=== PATIENT | female | born 1990 | race Caucasian/White ===

== ENCOUNTER 2016-12-05 08:35 | Emergency (ER) | payer OTHER ==
[2016-12-05 08:41] VITALS: BP 136/60; PULSE 82; RESP 17; TEMP 97.4
[2016-12-05] MEDS ORDERED: ORPHENADRINE 30 MG/ML 2 ML VIAL IM STA (08:50)
[2016-12-05] MEDS ORDERED: KETOROLAC 60 MG/2 ML VIAL IM STA (08:50)
--- NOTE | 2016-12-05 08:53 | ED ---
Back Pain HPI - General Chief Complaint: Back Pain/Injury Stated Complaint: upper back/neck pain Time Seen by Provider: 12/05/16 08:45 Source: patient, RN notes reviewed Mode of arrival: ambulatory Limitations: no limitations - History of Present Illness Initial Comments: 26-year-old female presents emergency Department with chief complaint of upper back/neck and shoulder pain. Patient states that over the last 2 weeks she's been doing repetitive work in which she's been climbing up ladders and pulling files away. She states this is a new job for her. She states that she's been having some discomfort and she gets worse throughout the day. She states she woke up today with severe tightness in her left shoulder. She states it's worse when she moves better at rest. She states she took some ibuprofen the day with no relief of pain. Patient denies chest pain, palpitations, shortness breath, blurred vision, headache, dizziness. Patient has no upper extremity weakness or paresthesias. - Related Data Home Medications Medication Instructions Recorded Confirmed Dextroamphetamine/Amphetamine 20 mg PO BID 12/05/16 12/05/16 [Adderall] Previous Rx's Medication Instructions Recorded Cyclobenzaprine [Flexeril] 10 mg PO TID PRN #15 tab 12/05/16 Hydrocodone/Acetaminophen [[place] 1 tab PO Q6HR PRN #20 tab 12/05/16 5-325] Allergies Allergy/AdvReac Type Severity Reaction Status Date / Time Penicillins Allergy Swelling Verified 12/05/16 08:37 Review of Systems ROS Statement: Those systems with pertinent positive or pertinent negative responses have been documented in the HPI. ROS Other: All systems not noted in ROS Statement are negative. Past Medical History Past Medical History: No Reported History History of Any Multi-Drug Resistant Organisms: None Reported Past Surgical History: No Surgical Hx Reported Past Psychological History: No Psychological Hx Reported Smoking Status: Never smoker Past Alcohol Use History: None Reported Past Drug Use History: None Reported General Exam Limitations: no limitations General appearance: alert, in no apparent distress Head exam: Present: atraumatic, normocephalic, normal inspection Eye exam: Present: normal appearance, PERRL, EOMI. Absent: scleral icterus, conjunctival injection, periorbital swelling ENT exam: Present: normal oropharynx Neck exam: Present: normal inspection, tenderness (Mild tenderness over the left trapezius), full ROM. Absent: meningismus, lymphadenopathy Respiratory exam: Present: normal lung sounds bilaterally. Absent: respiratory distress, wheezes, rales, rhonchi, stridor, decreased breath sounds Cardiovascular Exam: Present: regular rate, normal rhythm, normal heart sounds. Absent: systolic murmur, diastolic murmur, rubs, gallop, clicks Extremities exam: Present: other (Equal strength and full range of motion of upper extremities, neurovascular intact) Back exam: Present: full ROM, tenderness (Mild tenderness of the left scapular region), muscle spasm. Absent: paraspinal tenderness, vertebral tenderness Neurological exam: Present: alert, oriented X3, CN II-XII intact, reflexes normal. Absent: motor sensory deficit Course Vital Signs 12/05/16 08:38 Temperature 97.4 F L Pulse Rate 82 Respiratory 17 Rate Blood Pressure 136/60 O2 Sat by Pulse 100 Oximetry Medical Decision Making - Medical Decision Making 26-year-old female presented emergency department for upper back, neck pain. Patient has obvious muscle spasms. Patient pain is related to repetitive work and lifting. Patient was given pain medication, muscle relaxers. Patient is advised that he apply heat, ice and stretch. Return parameters were discussed. Disposition Clinical Impression: Upper back pain, Trapezius muscle spasm Disposition: HOME SELF-CARE Condition: Stable Instructions: Muscle Spasm (ED) Additional Instructions: Please return to the Emergency Department if symptoms worsen or any other concerns. Prescriptions: Cyclobenzaprine [Flexeril] 10 mg PO TID PRN #15 tab PRN Reason: Muscle Spasm Hydrocodone/Acetaminophen [[place] 5-325] 1 tab PO Q6HR PRN #20 tab PRN Reason: Pain Time of Disposition: 08:53
== END 2016-12-05 09:09 | disposition home or self-care (01) ==
LOC: EC 08:35
DX: M62.830 Muscle spasm of back (principal); Z79.899 Other long term (current) drug therapy; Z88.0 Allergy status to penicillin
CPT/HCPCS: 99283; 96372 ×2; J2360; J1885

== ENCOUNTER 2020-11-06 05:47 | Inpatient (IN) | payer BC, OTHER ==
[2020-11-06] MEDS ORDERED: TERBUTALINE 1 MG/ML VIAL SQ PRN (06:08)
[2020-11-06] MEDS ORDERED: OXYTOCIN 10 UNIT/ML 1 ML VIAL IM PRN (06:08)
[2020-11-06] MEDS ORDERED: CARBOPROST TROMETHAMINE 250 MCG/ML 1 ML AMP IM PRN (06:08)
[2020-11-06] MEDS ORDERED: LIDOCAINE 0.5% (PF) 5 MG/ML (50 ML SDV) SQ PRN (06:08)
[2020-11-06] MEDS ORDERED: OXYTOCIN 30 UNITS/500 ML NS 30 UNIT in SALINE 1 500ML.BAG IV SCH ×2 (06:08→12:45)
[2020-11-06] MEDS ORDERED: METHYLERGONOVINE 0.2 MG/ML 1 ML AMP IM PRN (06:08)
--- NOTE | 2020-11-06 06:27 | P.HPOB ---
History of Present Illness H&P Date: 11/06/20 Chief Complaint: Requested induction of labor. This patient is a pleasant 30-year-old 2 para 0 female estimated date of confinement 11/08/2020 estimated gestational age 39-5/7 weeks who presents to labor and delivery for requested induction of labor. Patient's care has been uncomplicated. She is uncomfortable as requested induction of labor at this time. Review of Systems Genitourinary: Reports Menstruation: Reports amenorrhea Past Medical History Past Medical History: No Reported History History of Any Multi-Drug Resistant Organisms: None Reported Past Surgical History: No Surgical Hx Reported Past Anesthesia/Blood Transfusion Reactions: No Reported Reaction Past Psychological History: No Psychological Hx Reported Past Alcohol Use History: None Reported Past Drug Use History: None Reported Medications and Allergies Home Medications Medication Instructions Recorded Confirmed Type Pnv 11/Iron Fum/Folic Acid/Om3 1 each PO DAILY 11/06/20 11/06/20 History [Virt-Syed Dha Softgel] Allergies Allergy/AdvReac Type Severity Reaction Status Date / Time Penicillins Allergy Swelling Verified 11/06/20 06:07 Exam Intake and Output 11/05/20 11/05/20 11/06/20 14:59 22:59 06:59 Other: Weight 83.007 kg - OBG Physical Exam Abdomen: bowel sounds normal, no diffuse tenderness, no bruit present, no guarding noted, no hepatomegaly, no splenomegaly, no mass Vulva: both: normal Vagina: normal moisture, no discharge Cervix: no lesion (Cervix is 2 cm 80% effaced -2 station.), no discharge Uterus: enlarged (Fundal height 38 cm.) Results blood work shows she is O positive, rubella immune, RPR nonreactive, hepatitis B negative, Glucola was normal, group B strep was negative, ultrasounds has shown normal anatomy and growth. Assessment and Plan Assessment: This is a pleasant 30-year-old 2 para 0 female 39-5/7 weeks gestation admitted to labor and delivery for requested induction of labor. Plan is induction of labor and anticipate vaginal delivery. (1) 39 weeks gestation of Current Visit: Yes Status: Acute Code(s): Z3A.39 - 39 WEEKS GESTATION OF SNOMED Code(s): 85342555 (2) Elective induction of labor planned Current Visit: Yes Status: Acute Code(s): AKS9031 - SNOMED Code(s): 934619882
[2020-11-06 06:29] LABS: Basophils % (A) 0 %; Eosinophils # (A) 0.2 k/uL (0-0.7); Eosinophils % (A) 2 %; HCT 38.8 % (34.0-46.0); HGB 13.3 gm/dL (11.4-16.0); Lymphocytes # (A) 2.5 k/uL (1.0-4.8); Lymphocytes % (A) 22 %; MCH 32.6 pg (25.0-35.0); MCHC 34.2 g/dL (31.0-37.0); MCV 95.5 fL (80.0-100.0); Mean Platelet Volume 7.3; Monocytes # (A) 0.6 k/uL (0-1.0); Monocytes % (A) 5 %; Neutrophils # (A) 8.2 k/uL (1.3-7.7); Neutrophils % (A) 71 %; Platelet Count 231 k/uL (150-450); RBC 4.07 m/uL (3.80-5.40); RDW 12.9 % (11.5-15.5); WBC 11.7 k/uL (3.8-10.6)
[2020-11-06 07:33] VITALS: RESP 16
[2020-11-06] MEDS: LACTATED RINGERS 1,000 ML IV SCH ×2 (07:52→20:28)
[2020-11-06] MEDS ORDERED: LACTATED RINGERS 1,000 ML IV ONE (11:36)
[2020-11-06] MEDS ORDERED: CITRIC ACID-SODIUM CITRATE 15 ML CUP PO ONE (11:36)
[2020-11-06] MEDS ORDERED: fentaNYL (PF) 50 MCG/ML 2 ML AMP ONE (11:54)
[2020-11-06] MEDS ORDERED: KETOROLAC 15 MG/ML 1 ML VIAL ONE (11:54)
[2020-11-06] MEDS ORDERED: ONDANSETRON 4 MG/2 ML VIAL ONE (11:54)
[2020-11-06] MEDS ORDERED: MORPHINE SULFATE (PF) 0.3 MG/0.3 ML SYR ONE (11:54)
[2020-11-06] MEDS ORDERED: OXYTOCIN 10 UNIT/ML 1 ML VIAL ONE (11:54)
[2020-11-06] MEDS ORDERED: CLINDAMYCIN 900 MG in DEXTROSE 5% IN WATER 50 ML IVPB ONE ×2 (12:00)
[2020-11-06] MEDS ORDERED: GENTAMICIN 330 MG in SODIUM CHLORIDE 0.9% 100 ML IVPB ONE (12:00)
[2020-11-06] MEDS ORDERED: ZOLPIDEM 5 MG TAB PO PRN (12:42)
[2020-11-06] MEDS ORDERED: NALOXONE 0.4 MG/ML 1 ML VIAL IV PRN (12:42)
[2020-11-06] MEDS ORDERED: diphenhydrAMINE 25 MG CAP PO PRN (12:42)
[2020-11-06] MEDS ORDERED: diphenhydrAMINE 50 MG/ML 1 ML VIAL IVP PRN (12:42)
[2020-11-06] MEDS ORDERED: METOCLOPRAMIDE 5 MG/ML 2 ML VIAL IVP PRN (12:42)
[2020-11-06] MEDS ORDERED: ONDANSETRON 4 MG/2 ML VIAL IVP PRN (12:42)
[2020-11-06] MEDS ORDERED: SIMETHICONE 80 MG CHEWABLE PO PRN (12:42)
[2020-11-06] MEDS ORDERED: LANOLIN CREAM 5 GM TUBE TOPICAL PRN (12:42)
--- NOTE | 2020-11-06 12:54 | P.OP ---
Date of Procedure: 11/06/20 Preoperative Diagnosis: #1: 39-5/7 week intrauterine . #2: Nonreassuring heart tones remote from delivery. Postoperative Diagnosis: #1: Same. #2: Nuchal cord 3 Procedure(s) Performed: Primary low transverse section Anesthesia: spinal Surgeon: Jason Leger Change Management Analyst #1: Claude Rosenberg Estimated Blood Loss (ml): 600 Pathology: other (Placenta) Condition: stable Disposition: observation Indications for Procedure: please see dictated H&P for intimate details of this patient's admission. In brief summary this is a pleasant 30-year-old 2 para 0 female 39-5/7 weeks' gestation who is admitted to labor and delivery for elective induction of labor. Patient is admitted she is 2 cm dilated has artificial rupture membranes for clear appearing fluid. Patient has Pitocin induction of labor. Unfortunately patient only progresses to 4 cm dilated begins having regular variable decelerations to the 60s. At this time I discussed with the patient my concerns and the remoteness from delivery and recommended proceed with section. Patient understands this surgery and risks including risks of infection, bleeding, possible injury to bowel, bladder, vessels, and/or other organs. All the patient's questions are answered and a written consent is obtained. Operative Findings: This is a vigorous viable female infant Apgars 8 and 9 delivery time is 1208 hrs. had a nuchal cord 3 and light meconium-stained fluid Description of Procedure: This patient is taken to the operating room. She is already had a Art catheter placed to straight drain. She subsequent sat up and spinal anesthetic is administered without incident. With an adequate level of anesthesia she is an abdominal prep and drape. Scalpels and taken Pfannenstiel skin incision is then made. A second scalpel is taken down the fascia the fascia scored with a knife. Fascial incision extended bilaterally using the Adams scissors. Fascia is then dissected off the rectus muscles sharply. Rectus muscles are the peritoneum identified and entered sharply. Peritoneal incision extended superior and inferior without difficulty. Bladder blade is then placed. Bladder peritoneum was taken off the lower uterine segment sharply. Scalpels and taken low transverse uterine incision is then made. Using a hemostat I into the uterine cavity bluntly and there is loss of thin meconium appearing fluid. The uterine incision extended bluntly. The infant's head is then guided through the incision with fundal pressure delivered. Mouth and nares are bulb suctioned. There is a nuchal cord 3 which is reduced. With gentle fundal pressure we then deliver the rest this infant's body. This is a vigorous viable female infant Apgars 8 and 9 delivery time was 1208 hrs. has spontaneous respiration good cry. Umbilical cord is doubly clamped and cut does appear to be trivascular. Placenta is then manually extracted intact. Uterus is then externalized. Uterine incision is then done demarcated with Correa clamps and closed using 0 Vicryl running locked fashion 2 layers. Excellent hemostasis is noted. Bladder peritoneum was then reapproximated using 3-0 Vicryl running fashion. Excess fluid is removed from the abdomen and pelvis. Uterus, tubes, ovaries appear normal for term gestation. Uterus placed back into the abdomen. The parietal peritoneum was then closed using 0 Vicryl running fashion. Rectus muscles reapproximated Vicryl interrupted fashion. Fascial incision is closed using 0 PDS. Fascial incision is intact and hemostatic. Subcutaneous tissues and closed using a 3-0 Vicryl. Skin is and closed using digna. Sterile dressing is applied. All counts correct 3. There are no complications. and mother stable in the birthing room.
[2020-11-06] MEDS: SENNOSIDES-DOCUSATE SODIUM 1 EACH TAB PO SCH (20:28)
[2020-11-06] MEDS: KETOROLAC 15 MG/ML 1 ML VIAL IVP PRN (21:53)
[2020-11-07] MEDS: LACTATED RINGERS 1,000 ML IV SCH ×3 (03:40→19:44)
[2020-11-07] MEDS: KETOROLAC 15 MG/ML 1 ML VIAL IVP PRN (04:47)
--- NOTE | 2020-11-07 06:29 | P.PNOBGPC ---
Subjective - Subjective Patient reports: Reports appetite normal, Reports voiding normally, Reports pain well controlled, Reports ambulating normally : doing well Objective - Vital Signs Latest vital signs: Vital Signs Temp Pulse Resp BP Pulse Ox 11/07/20 04:00 98.4 F 78 16 111/62 95 11/07/20 00:00 98.5 F 84 16 102/65 96 11/06/20 20:00 98.5 F 80 16 101/63 98 11/06/20 16:00 98.2 F 75 16 108/58 11/06/20 14:37 82 16 108/56 11/06/20 14:07 98.4 F 76 16 100/61 11/06/20 13:37 86 16 141/75 96 11/06/20 13:22 80 16 115/57 96 11/06/20 13:07 81 16 114/62 97 11/06/20 12:52 88 16 117/79 97 11/06/20 12:37 98.1 F 86 16 131/82 98 11/06/20 07:33 98.4 F 92 16 120/66 99 11/06/20 07:25 98.4 F 92 16 120/66 99 Intake and Output 11/06/20 11/06/20 11/07/20 14:59 22:59 06:59 Intake Total 50 1000 Output Total 700 600 Balance 50 300 -600 Intake: Oral 50 1000 Output: Urine 700 600 Uretheral (Art) 300 Other: # Voids 2 Weight 83.007 kg - Exam Lungs: bilateral: normal Chest: Normal S1, Normal S2 Extremities: Present: normal Abdomen: Present: normal appearance, soft. Absent: distention, tenderness Incision: Present: normal, dry, intact Uterus: Present: normal, firm - Labs Labs: Abnormal Lab Results - Last 24 Hours (Table) 11/06/20 Range/Units 06:03 WBC 11.7 H (3.8-10.6) k/uL Neutrophils # 8.2 H (1.3-7.7) k/uL Assessment and Plan Assessment: Postoperative day #1. Patient is resting without new complaints. Vital signs are stable and she is afebrile. Uterus is firm nontender and her incision is intact and dry. Patient is ambulating and urinating without difficulty. Plan today is to check a CBC, allow the patient to shower, encourage ambulation, and advance diet. (1) 39 weeks gestation of Current Visit: Yes Status: Acute Code(s): Z3A.39 - 39 WEEKS GESTATION OF SNOMED Code(s): 34477140 (2) Elective induction of labor planned Current Visit: Yes Status: Acute Code(s): VCD1888 - SNOMED Code(s): 025203720
--- NOTE | 2020-11-07 08:33 | P.PN ---
Progress Note - Text Progress Note Date: 11/07/20 (281) Anesthesia Postop day 1 Subjective: Status Post section with Duramorph. Patient seen and examined. Doing well without complaint. VAS 0. No nausea or vomiting. Mild pruritus tolerable.. . Gross lower extremity strength intact. Positive ambulation . Without apparent anesthetic complications. Objective: Vital signs reviewed Heart: Regular Rate Lungs: Good chest excursion Abdomen: Appears nondistended Assessment: Status post with Duramorph postop day 1 Plan: Continue current care with your medical management.
[2020-11-07 08:50] LABS: Basophils # (A) 0.1 k/uL (0-0.2); Basophils % (A) 0 %; Eosinophils # (A) 0.3 k/uL (0-0.7); Eosinophils % (A) 2 %; HCT 36.1 % (34.0-46.0); HGB 12.4 gm/dL (11.4-16.0); Lymphocytes # (A) 1.6 k/uL (1.0-4.8); Lymphocytes % (A) 13 %; MCH 33.1 pg (25.0-35.0); MCHC 34.4 g/dL (31.0-37.0); MCV 96.2 fL (80.0-100.0); Mean Platelet Volume 7.3; Monocytes # (A) 0.5 k/uL (0-1.0); Monocytes % (A) 4 %; Neutrophils # (A) 10.2 k/uL (1.3-7.7); Neutrophils % (A) 80 %; Platelet Count 191 k/uL (150-450); RBC 3.75 m/uL (3.80-5.40); WBC 12.7 k/uL (3.8-10.6)
[2020-11-07] MEDS: SENNOSIDES-DOCUSATE SODIUM 1 EACH TAB PO SCH ×2 (09:00→20:47)
[2020-11-07] MEDS: IBUPROFEN 600 MG TAB PO PRN (20:47)
[2020-11-08] MEDS: LACTATED RINGERS 1,000 ML IV SCH ×2 (01:04→04:38)
--- NOTE | 2020-11-08 06:34 | P.PNOBGPC ---
Subjective - Subjective Patient reports: Reports appetite normal, Reports voiding normally, Reports pain well controlled, Reports ambulating normally : doing well Objective - Vital Signs Latest vital signs: Vital Signs Temp Pulse Resp BP Pulse Ox 11/08/20 04:00 97.5 F L 84 16 104/55 96 11/07/20 20:00 98.2 F 86 16 120/58 96 11/07/20 11:58 98.1 F 84 16 101/61 11/07/20 08:00 98.2 F 76 16 98/55 Intake and Output 11/07/20 11/07/20 11/08/20 14:59 22:59 06:59 Other: # Voids 1 - Exam Lungs: bilateral: normal Chest: Normal S1, Normal S2 Extremities: Present: normal Abdomen: Present: normal appearance, soft. Absent: distention, tenderness Incision: Present: normal, dry, intact Uterus: Present: normal, firm - Labs Labs: Abnormal Lab Results - Last 24 Hours (Table) 11/07/20 Range/Units 07:50 WBC 12.7 H (3.8-10.6) k/uL RBC 3.75 L (3.80-5.40) m/uL Neutrophils # 10.2 H (1.3-7.7) k/uL Assessment and Plan Assessment: Postoperative day #2. Patient is resting without complaints. She is having some difficulty with breast-feeding and emotional about this. Vital signs are stable and she is afebrile. Uterus is firm nontender and her incision is intact and dry. Patient is considering going home today. Vital signs are stable and she is afebrile. CBC yesterday was normal. Patient's tolerating regular diet, urinating, ambulating without difficulty. Plan today is to continue routine postoperative care and discharge home later today if she wishes. (1) 39 weeks gestation of Current Visit: Yes Status: Acute Code(s): Z3A.39 - 39 WEEKS GESTATION OF SNOMED Code(s): 13567507 (2) Elective induction of labor planned Current Visit: Yes Status: Acute Code(s): IBM7609 - SNOMED Code(s): 484382649
--- NOTE | 2020-11-08 06:48 | P.DS ---
Providers Date of admission: 11/06/20 05:47 Expected date of discharge: 11/08/20 Attending physician: Jason Leger Primary care physician: Stated None - Discharge Diagnosis(es) (1) 39 weeks gestation of Current Visit: Yes Status: Acute (2) Elective induction of labor planned Current Visit: Yes Status: Acute Hospital Course: Please see dictated H&P for intimate details of this patient's admission. Brief summary this is a pleasant 30-year-old 2 para 0 female 39-5/7 weeks gestation admitted to labor and delivery for induction of labor. Patient's subsequent was on have a primary low transverse section for nonreassuring heart tones and found to have a triple nuchal cord. patient and her baby did well. Postoperative day #2 patient's felt be stable for discharge home follow up with me in 1 week. Procedures: Induction of labor and primary low transverse section Patient Condition at Discharge: Good Plan - Discharge Summary New Discharge Prescriptions: New Ibuprofen [Motrin] 600 mg PO Q6H PRN #40 tab PRN Reason: Pain oxyCODONE HCL [OxyIR] 5 mg PO Q4HR PRN #18 tab PRN Reason: Pain No Action Pnv 11/Iron Fum/Folic Acid/Om3 [Virt-Syed Dha Softgel] 1 each PO DAILY Discharge Medication List Pnv 11/Iron Fum/Folic Acid/Om3 [Virt-Syed Dha Softgel] 1 each PO DAILY 11/06/20 [History] Ibuprofen [Motrin] 600 mg PO Q6H PRN #40 tab 11/08/20 [Rx] oxyCODONE HCL [OxyIR] 5 mg PO Q4HR PRN #18 tab 11/08/20 [Rx] Follow up Appointment(s)/Referral(s): Jason Leger MD [STAFF PHYSICIAN] - 12/17/20 11:00 am (Please see me in 1 week for an incision check as well.) Patient Instructions/Handouts: (DC) Activity/Diet/Wound Care/Special Instructions: No heavy lifting or strenuous activity for 6 weeks. Please call if any fever, chills, excessive vaginal angle, and/or abdominal pain. Discharge Disposition: HOME SELF-CARE
[2020-11-08] MEDS: IBUPROFEN 600 MG TAB PO PRN (08:01)
[2020-11-08] MEDS: SENNOSIDES-DOCUSATE SODIUM 1 EACH TAB PO SCH (08:01)
[2020-11-08 08:47] VITALS: BP 136/83; PULSE 86; TEMP 97.8
== END 2020-11-08 15:00 | disposition home or self-care (01) | DRG 788 ==
LOC: 4FBP 05:47
PROVIDERS: ADMIT Obstetrics & Gynecology; ATTEND Obstetrics & Gynecology
PROC: 10907ZC Drainage of Amniotic Fluid, Therapeutic from Products of Conception, Via Natural or Artificial Opening (ICD-10-PCS; 2020-11-06)
PROC: 3E033VJ Introduction of Other Hormone into Peripheral Vein, Percutaneous Approach (ICD-10-PCS; 2020-11-06)
PROC: 10D00Z1 Extraction of Products of Conception, Low, Open Approach (ICD-10-PCS; principal; 2020-11-06 11:54)
DX: O69.81X0 Labor and delivery complicated by cord around neck, without compression, not applicable or unspecified (principal); L29.9 Pruritus, unspecified; O76 Abnormality in fetal heart rate and rhythm complicating labor and delivery; O77.0 Labor and delivery complicated by meconium in amniotic fluid; O99.73 Diseases of the skin and subcutaneous tissue complicating the puerperium; Z37.0 Single live birth; Z3A.39 39 weeks gestation of pregnancy; Z79.899 Other long term (current) drug therapy
CPT/HCPCS: 85025; 86850; 86900; 86901; 88307

== ENCOUNTER 2022-06-11 22:17 | Inpatient (IN) | payer OTHER ==
[2022-06-11] MEDS ORDERED: CITRIC ACID-SODIUM CITRATE 15 ML CUP PO ONE (22:56)
[2022-06-11] MEDS: LACTATED RINGERS 1,000 ML IV SCH (23:08)
[2022-06-11 23:15] LABS: Basophils # (A) 0.1 k/uL (0-0.2); Basophils % (A) 0 %; Eosinophils # (A) 0.2 k/uL (0-0.7); Eosinophils % (A) 1 %; HCT 40.4 % (34.0-46.0); Lymphocytes # (A) 2.5 k/uL (1.0-4.8); Lymphocytes % (A) 15 %; MCHC 34.7 g/dL (31.0-37.0); MCV 94.9 fL (80.0-100.0); Mean Platelet Volume 7.9; Monocytes # (A) 0.8 k/uL (0-1.0); Monocytes % (A) 5 %; Neutrophils # (A) 13.4 k/uL (1.3-7.7); Neutrophils % (A) 78 %; Platelet Count 231 k/uL (150-450); RBC 4.26 m/uL (3.80-5.40); RDW 12.7 % (11.5-15.5); WBC 17.2 k/uL (3.8-10.6)
[2022-06-11] MEDS ORDERED: PHENYLEPHRINE-0.9% NACL SYG 1,000 MCG/10 ML SYRINGE ONE (23:22)
[2022-06-11] MEDS ORDERED: NALBUPHINE 10 MG/ML (1 ML AMP) ONE (23:22)
[2022-06-11] MEDS ORDERED: OXYTOCIN 30 UNITS/500 ML NS BAG IV ONE (23:22)
[2022-06-11] MEDS ORDERED: MORPHINE SULFATE (PF) 0.3 MG/0.3 ML SYR ONE (23:22)
[2022-06-11] MEDS ORDERED: KETOROLAC 15 MG/ML 1 ML VIAL ONE (23:22)
[2022-06-11] MEDS ORDERED: fentaNYL (PF) 50 MCG/ML 2 ML AMP ONE (23:22)
[2022-06-11] MEDS ORDERED: ONDANSETRON 4 MG/2 ML VIAL ONE (23:22)
--- NOTE | 2022-06-12 00:11 | P.HPOB ---
History of Present Illness H&P Date: 06/11/22 Chief Complaint: SROM 31 year old presents at 38 weeks and 4 days with spontaneous rupture of membranes at 2109. She's had a previous and plans repeat. Review of Systems All systems: negative Constitutional: Denies chills, Denies fever Eyes: denies blurred vision, denies pain Ears, nose, mouth and throat: Denies headache, Denies sore throat Cardiovascular: Denies chest pain, Denies shortness of breath Respiratory: Denies cough Gastrointestinal: Denies abdominal pain, Denies diarrhea, Denies nausea, Denies vomiting Genitourinary: Denies dysuria, Denies hematuria Musculoskeletal: Denies myalgias Integumentary: Denies pruritus, Denies rash Neurological: Denies numbness, Denies weakness Psychiatric: Denies anxiety, Denies depression Endocrine: Denies fatigue, Denies weight change Past Medical History Past Medical History: No Reported History History of Any Multi-Drug Resistant Organisms: None Reported Past Surgical History: No Surgical Hx Reported Past Anesthesia/Blood Transfusion Reactions: No Reported Reaction Smoking Status: Current every day smoker - Past Family History Father Family Medical History: Hypertension Medications and Allergies Home Medications Medication Instructions Recorded Confirmed Type Pnv 11/Iron Fum/Folic Acid/Om3 1 each PO DAILY 11/06/20 06/11/22 History [Virt-Syed Dha Softgel] Allergies Allergy/AdvReac Type Severity Reaction Status Date / Time Penicillins Allergy Swelling Verified 06/11/22 22:19 Exam Osteopathic Statement: *. No significant issues noted on an osteopathic structural exam other than those noted in the History and Physical/Consult. Intake and Output 06/11/22 06/11/22 06/12/22 14:59 22:59 06:59 Other: Weight 84.368 kg Heart: Regular rate and rhythm Lungs: Clear to auscultation bilaterally Abdomen: Soft, nontender Extremities: Negative Homans sign Results Result Diagrams: 06/11/22 22:51 Abnormal Lab Results - Last 24 Hours (Table) 06/11/22 Range/Units 22:51 WBC 17.2 H (3.8-10.6) k/uL Neutrophils # 13.4 H (1.3-7.7) k/uL Assessment and Plan (1) Spontaneous rupture of membranes Current Visit: Yes Status: Acute Code(s): [id number] - SNOMED Code(s): 22848 4005 (2) Previous section Current Visit: Yes Status: Acute Code(s): Z98.891 - HISTORY OF UTERINE SCAR FROM PREVIOUS SURGERY SNOMED Code(s): 106382042 Plan: 1. Repeat low transverse
--- NOTE | 2022-06-12 00:14 | P.OP ---
Date of Procedure: 06/12/22 Preoperative Diagnosis: 1. at 38 weeks and 4 days 2. Spontaneous rupture membranes 3. Previous section Postoperative Diagnosis: Same Procedure(s) Performed: Repeat low transverse Anesthesia: spinal Surgeon: Shireen Arredondo [employer]1: Jailyn Lyman Estimated Blood Loss (ml): 797 IV fluids (ml): 800 Urine output (ml): 200 Pathology: none sent Condition: stable Disposition: floor Operative Findings: Viable male, Apgars 9, 9, weight 7 lbs. 13 oz. Normal uterus, tubes, ovaries Description of Procedure: Patient was taken to the operating room where spinal anesthesia was found be adequate. She was prepped and draped in normal sterile fashion in dorsal supine position with a leftward tilt. Pfannenstiel skin incision was made the scalpel and carried through to the underlying layer of fascia with the scalpel. Fascia was incised in midline and carried bilaterally with the Adams scissors. The superior aspect of the fascial incision was grasped with [place] clamps elevated and the underlying rectus muscles dissected off with the Adams's. Attention was then turned to inferior aspect of same incision which in a similar fashion was grasped tented up and the underlying rectus muscles dissected off with the Adams's. The rectus muscles were the midline and the peritoneum was identified tented up and entered sharply with the scalpel. The incision was extended superiorly and inferiorly with good visualization of the bladder. The bladder blade was inserted and the vesicouterine peritoneum was incised the Metzenbaums then carried bilaterally and bladder flap created digitally. A low transverse incision was then made on the uterus with the scalpel. This was carried bilaterally and digital manner. 's head delivered atraumatically, nose and mouth bulb suctioned, cord clamped and cut, handed off to waiting nurses. Apgars 9,9, weight 7 lbs. 13 oz. Placenta delivered manually, intact with three-vessel cord. The uterus is exteriorized and cleared of all clots and debris. The uterine incision was closed with 0 Vicryl in a running locked fashion. Second layer of the same sutures used in imbricating fashion to obtain excellent hemostasis. Bladder flap was then reapproximated using 2-0 Vicryl in a running fashion. Both ovaries and tubes appeared normal. The uterus was placed back into the abdomen. The peritoneum was reapproximated using 2-0 Vicryl in a running fashion. The muscles were reapproximated using 2- 0 Vicryl in interrupted fashion. The fascia was reapproximated using 0 Vicryl in a running fashion. The subcutaneous tissues closed with 3-0 Vicryl running fashion. The skin was closed digna. Patient tolerated the procedure well, sponge and instrument counts were correct times 2 and she was taken to the recovery room in stable condition.
[2022-06-12] MEDS: LACTATED RINGERS 1,000 ML IV SCH ×2 (00:15→16:46)
[2022-06-12] MEDS ORDERED: ONDANSETRON 4 MG/2 ML VIAL IVP PRN (00:19)
[2022-06-12] MEDS ORDERED: LANOLIN CREAM 5 GM TUBE TOPICAL PRN (00:19)
[2022-06-12] MEDS ORDERED: diphenhydrAMINE 50 MG/ML 1 ML VIAL IVP PRN ×2 (00:19)
[2022-06-12] MEDS ORDERED: METOCLOPRAMIDE 5 MG/ML 2 ML VIAL IVP PRN (00:19)
[2022-06-12] MEDS ORDERED: diphenhydrAMINE 25 MG CAP PO PRN (00:19)
[2022-06-12] MEDS ORDERED: ZOLPIDEM 5 MG TAB PO PRN (00:19)
[2022-06-12] MEDS ORDERED: diphenhydrAMINE 50 MG CAP PO PRN (00:19)
[2022-06-12] MEDS ORDERED: NALOXONE 0.4 MG/ML 1 ML VIAL IV PRN (00:19)
[2022-06-12] MEDS ORDERED: OXYTOCIN 30 UNITS/500 ML NS 30 UNIT in SALINE 1 500ML.BAG IV SCH (00:30)
[2022-06-12] MEDS: ACETAMINOPHEN TAB 500 MG TAB PO SCH ×3 (03:29→19:49)
[2022-06-12] MEDS: IBUPROFEN 600 MG TAB PO SCH ×4 (06:09→23:01)
--- NOTE | 2022-06-12 07:01 | P.PN ---
Progress Note - Text 06/12/22 631am 31-year-old female status post with spinal Duramorph. Patient seen and evaluated for postop pain control, patient has a VAS of 4 with complains of mild pruritus. No nausea vomiting. Patient doing well
--- NOTE | 2022-06-12 07:02 | P.PNOBGPC ---
Subjective - Subjective Patient reports: Reports appetite normal, Reports voiding normally, Reports pain well controlled, Reports ambulating normally : doing well Objective - Vital Signs Latest vital signs: Vital Signs Temp Pulse Resp BP Pulse Ox 06/12/22 04:00 97.7 F 102 H 15 109/66 97 06/12/22 02:15 97.2 F L 116 H 16 123/67 98 06/12/22 01:45 103 H 16 126/59 06/12/22 01:15 108 H 16 132/84 06/12/22 01:00 103 H 16 126/86 06/12/22 00:45 104 H 17 128/84 06/12/22 00:30 98 17 109/60 06/12/22 00:15 96.6 F L 116 H 16 123/83 100 06/11/22 22:47 97.5 F L 114 H 17 135/85 97 06/11/22 22:38 97.5 F L 114 H 17 135/85 97 Intake and Output 06/11/22 06/11/22 06/12/22 14:59 22:59 06:59 Output Total 1995 Balance -1995 Output: Urine 250 Output, Quantitative 1746 Blood Loss Other: Voiding Method Indwelling Catheter Weight 84.368 kg - Labs Labs: Abnormal Lab Results - Last 24 Hours (Table) 06/11/22 Range/Units 22:51 WBC 17.2 H (3.8-10.6) k/uL Neutrophils # 13.4 H (1.3-7.7) k/uL Assessment and Plan Assessment: Postoperative day #1. Patient is resting without new complaints. Vital signs are stable she's afebrile. Uterus is firm nontender. Her incision is intact and there is a little bit of bleeding from the right side but appears to be just from recent surgery. Plan today is to discontinue her catheter, advance her diet, check a CBC, and encourage ambulation. (1) Previous section Current Visit: Yes Status: Acute Code(s): Z98.891 - HISTORY OF UTERINE SCAR FROM PREVIOUS SURGERY SNOMED Code(s): 180917171
[2022-06-12] MEDS: SENNOSIDES-DOCUSATE SODIUM 1 EACH TAB PO SCH ×2 (09:25→19:50)
[2022-06-12] MEDS ORDERED: KETOROLAC 15 MG/ML 1 ML VIAL IVP SCH (12:00)
[2022-06-12] MEDS: SIMETHICONE 80 MG CHEWABLE PO PRN ×2 (14:34→20:04)
[2022-06-12] MEDS: MAG HYDROX/AL HYDROX/SIMETH 30 ML CUP PO SCH (23:02)
[2022-06-13] MEDS: ACETAMINOPHEN TAB 500 MG TAB PO SCH ×5 (00:30→20:21)
[2022-06-13] MEDS: IBUPROFEN 600 MG TAB PO SCH ×4 (04:50→23:27)
[2022-06-13] MEDS: SENNOSIDES-DOCUSATE SODIUM 1 EACH TAB PO SCH ×2 (08:09→20:21)
[2022-06-13] MEDS: SIMETHICONE 80 MG CHEWABLE PO PRN ×4 (08:09→20:21)
[2022-06-13 08:26] VITALS: RESP 16
[2022-06-13 08:56] LABS: Basophils % (A) 0 %; Eosinophils # (A) 0.2 k/uL (0-0.7); Eosinophils % (A) 1 %; HCT 29.5 % (34.0-46.0); Lymphocytes # (A) 1.9 k/uL (1.0-4.8); Lymphocytes % (A) 13 %; MCH 32.3 pg (25.0-35.0); MCV 95.2 fL (80.0-100.0); Mean Platelet Volume 7.9; Monocytes # (A) 0.7 k/uL (0-1.0); Monocytes % (A) 4 %; Neutrophils % (A) 80 %; Platelet Count 194 k/uL (150-450); WBC 15.1 k/uL (3.8-10.6)
[2022-06-13] MEDS: MAG HYDROX/AL HYDROX/SIMETH 30 ML CUP PO SCH ×4 (10:20→21:53)
--- NOTE | 2022-06-13 12:44 | P.PNOBGPC ---
Subjective - Subjective Principal diagnosis: Status post repeat section postoperative day #2 Interval history: Patient did have quite a bit of gas pains last night. They are somewhat better today. She is passing some small flatus but no bowel movement yet. She is trying to keep up with her pain medications. She states it hurts to sometimes take a deep breath in due to the abdominal pain. Lochia is minimal. Her Patient reports: Reports appetite normal, Reports voiding normally, Reports pain well controlled (Better today), Reports ambulating normally [place]: doing well, nursing well Objective - Vital Signs Latest vital signs: Vital Signs Temp Pulse Resp BP Pulse Ox 06/13/22 08:00 97.9 F 95 16 97/59 98 06/13/22 00:00 98.0 F 105 H 20 141/76 98 06/12/22 20:00 97.7 F 108 H 16 100/67 98 06/12/22 16:00 97.8 F 87 14 100/62 Intake and Output 06/12/22 06/13/22 06/13/22 22:59 06:59 14:59 Output Total 1850 Balance -1850 Output: Urine 1850 Straight 650 Other: # Voids 1 - Exam Extremities: Present: normal. Absent: tenderness Abdomen: Present: soft (Positive bowel sounds 4), distention (Slightly distended), tenderness (Mild) Incision: Present: normal, dry, intact. Absent: erythematous Uterus: Present: normal, firm. Absent: tenderness - Labs Labs: Abnormal Lab Results - Last 24 Hours (Table) 06/13/22 Range/Units 07:55 WBC 15.1 H (3.8-10.6) k/uL RBC 3.10 L (3.80-5.40) m/uL Hgb 10.0 L D (11.4-16.0) gm/dL Hct 29.5 L (34.0-46.0) % Neutrophils # 12.0 H (1.3-7.7) k/uL Assessment and Plan Assessment: Status post repeat low transverse section postoperative day #2 Plan: We'll continue with stool softeners, Mylicon, and Maalox. Advised we can add a Dulcolax suppository if she wishes later today. Patient is encouraged to continue ambulating. Will continue and postoperative care.
[2022-06-13] MEDS ORDERED: bisacodyL 10 MG SUPP RECTAL STA (12:49)
[2022-06-13] MEDS ORDERED: bisacodyL 10 MG SUPP RECTAL SCH (21:00)
[2022-06-14] MEDS: ACETAMINOPHEN TAB 500 MG TAB PO SCH ×3 (01:49→13:41)
[2022-06-14] MEDS: IBUPROFEN 600 MG TAB PO SCH ×2 (05:36→11:22)
[2022-06-14] MEDS: SENNOSIDES-DOCUSATE SODIUM 1 EACH TAB PO SCH (08:31)
[2022-06-14] MEDS: SIMETHICONE 80 MG CHEWABLE PO PRN ×2 (08:32→13:17)
[2022-06-14] MEDS: MAG HYDROX/AL HYDROX/SIMETH 30 ML CUP PO SCH ×2 (08:32→13:17)
[2022-06-14 08:43] VITALS: BP 107/69; PULSE 97; TEMP 98.1
--- NOTE | 2022-06-14 12:16 | P.DS ---
Providers Date of admission: 06/11/22 22:37 Expected date of discharge: 06/14/22 Attending physician: Jason Leger Primary care physician: Stated None Hospital Course: This is a 31-year-old female 3 para 1 who presented at 38-4/7 weeks with complaints of active labor. She underwent a repeat low transverse section on 06/11/2022 and delivered a viable male with scores of 9 at 1 minute and 9 at 5 minutes and weight of 7 lbs. 13 oz. Her post operative and course was Located by gas pains. She did finally have a bowel movement last night and feels better but still does have some gas pains. She is ambulating. She has been tolerating regular diet. Pain is better controlled now. She is breast-feeding. Vital signs are stable. Abdomen is soft with slight distention and positive bowel sounds 4. Incision is clean dry and intact with digna in place. Extremities show negative Homans. Impression is status post repeat section postoperative day #3. Plan is to discharge home later today. Routine postoperative and instructions are given. Kimberly will be removed and Steri-Strips placed prior to discharge. She is advised to follow up with Dr. Leger in the office in approximately one week for a postoperative check. She is advised to call the office if she has any further questions or concerns prior to her appointment time. She will be given a prescription for oxycodone and ibuprofen. She can still use Tylenol as needed. She is also instructed to continue her stool softeners and may use it o'clock suppository at night if needed. Procedures: Repeat low transverse section on 06/11/2022 Patient Condition at Discharge: Stable Plan - Discharge Summary New Discharge Prescriptions: New Ibuprofen [Motrin] 600 mg PO Q6H #60 tab bisacodyL [Dulcolax] 10 mg RECTAL HS #3 suppositor oxyCODONE HCL [OxyIR] 5 mg PO Q4HR PRN #18 tab PRN Reason: Pain Scale 4 - 6 Continue Pnv 11/Iron Fum/Folic Acid/Om3 [Virt-Syed Dha Softgel] 1 each PO DAILY Discharge Medication List Pnv 11/Iron Fum/Folic Acid/Om3 [Virt-Syed Dha Softgel] 1 each PO DAILY 11/06/20 [History] Ibuprofen [Motrin] 600 mg PO Q6H #60 tab 06/14/22 [Rx] bisacodyL [Dulcolax] 10 mg RECTAL HS #3 suppositor 06/14/22 [Rx] oxyCODONE HCL [OxyIR] 5 mg PO Q4HR PRN #18 tab 06/14/22 [Rx] Follow up Appointment(s)/Referral(s): Jason Leger MD [STAFF PHYSICIAN] - 07/22/22 10:30 am (Post op apointment 08-23-2021 at 8:30) Activity/Diet/Wound Care/Special Instructions: Instructions 1. Do not begin any exercise program for 3 weeks. 2. Do not resume sexual relations for 3 weeks or longer if uncomfortable. 3. You may take tub baths or showers at any time. 4. You may use tampons if desired after 3 weeks. 5. Keep the area of episiotomy (stitches) clean and dry. 6. If you are not nursing, wear a good fitting, supportive bra during the day and limit fluid intake for at least 1 week to prevent breast engorgement. 7. Call the office, [phone], within the next week to make appointment for your 6 week checkup if it has not already been made. 8. Report any of the following occurrences to the doctor promptly: a. Heavy, excessive bleeding b. Chills, fever c. Burning or frequency of urination d. Pain or redness and breasts if nursing e. Increasing pain or swelling in episiotomy (stitches). In addition to the above instructions, the following additional should be followed: 1. No heavy lifting or straining (exercising) until after 6 week checkup. 2. Keep abdominal incision clean and dry: You may wear a dressing if more comfortable. 3. Make office appointment for 10 days after going home or as instructed by her doctor. Discharge Disposition: HOME SELF-CARE
== END 2022-06-14 14:00 | disposition home or self-care (01) | DRG 788 ==
LOC: FBPOP 22:17 → 4FBP 22:37
PROVIDERS: ADMIT Obstetrics & Gynecology; ATTEND Obstetrics & Gynecology
PROC: 10D00Z1 Extraction of Products of Conception, Low, Open Approach (ICD-10-PCS; principal; 2022-06-12)
PROC: 4A0HXCZ Measurement of Products of Conception, Cardiac Rate, External Approach (ICD-10-PCS; 2022-06-12)
DX: O34.211 Maternal care for low transverse scar from previous cesarean delivery (principal); O42.92 Full-term premature rupture of membranes, unspecified as to length of time between rupture and onset of labor; F17.210 Nicotine dependence, cigarettes, uncomplicated; O99.73 Diseases of the skin and subcutaneous tissue complicating the puerperium; L29.9 Pruritus, unspecified; O99.334 Smoking (tobacco) complicating childbirth; Z37.0 Single live birth; Z3A.38 38 weeks gestation of pregnancy; Z88.0 Allergy status to penicillin
CPT/HCPCS: 59025; 84112; 85025; 86850; 86900; 86901; 99213